=== PATIENT | male | born 1985 | race Caucasian/White ===

== ENCOUNTER 2020-03-07 20:02 | Emergency (ER) | payer BC ==
[2020-03-07] MEDS ORDERED: fentaNYL 100 MCG/2 ML SDV IVPUSH ONE (20:17)
[2020-03-07] MEDS ORDERED: Sodium Chloride 0.9% 10 ML Syringe FLUSH PRN (20:22)
--- NOTE | 2020-03-07 20:25 | EDM.PDOC ---
ED HPI GENERAL MEDICAL PROBLEM - General Chief Complaint: Abdominal Pain Stated Complaint: ADB PAIN Time Seen by Provider: 03/07/20 20:18 Source of Information: Reports: Patient, RN Notes Reviewed History Limitations: Reports: No Limitations - History of Present Illness INITIAL COMMENTS - FREE TEXT/NARRATIVE: 34-year-old gentleman presents emergency department a complaint of right lower quadrant pain he states the pain really is developed over the last 12 hours and got significantly worse over the last hour or so he has felt dizzy and lightheaded but no nausea or vomiting he still passing gas no history of abdominal surgeries right lower abd Pain Score (Numeric/FACES): 9 - Related Data Allergies Allergy/AdvReac Type Severity Reaction Status Date / Time No Known Allergies Allergy Verified 03/07/20 20:16 Home Meds: Home Meds Ketorolac [Toradol] 10 mg PO TID PRN #20 tab 03/07/20 [Rx] Past Medical History - Past Health History Medical/Surgical History: Denies Medical/Surgical History Social & Family History - Tobacco Use Smoking Status *Q: Never Smoker ED ROS GENERAL - Review of Systems Review Of Systems: See Below Constitutional: Denies: Fever, Chills HEENT: Reports: No Symptoms Respiratory: Reports: No Symptoms Cardiovascular: Reports: Lightheadedness GI/Abdominal: Reports: Abdominal Pain. Denies: Nausea, Vomiting Musculoskeletal: Reports: No Symptoms ED EXAM, GI/ABD - Physical Exam Exam: See Below Exam Limited By: No Limitations General Appearance: Alert, Moderate Distress Respiratory/Chest: No Respiratory Distress, Lungs Clear, Normal Breath Sounds, No Accessory Muscle Use, Chest Non-Tender Cardiovascular: Regular Rate, Rhythm, No Murmur GI/Abdominal Exam: Soft, Tender (Tender right lower quadrant), Other (Psoas sign and obturator sign heeltap sign all positive) Course - Vital Signs Last Recorded V/S: Last Vital Signs Temp 96.7 F L 03/07/20 20:14 Pulse 80 03/07/20 23:40 Resp 16 03/07/20 23:40 BP 133/78 03/07/20 23:40 Pulse Ox 98 03/07/20 23:40 - Orders/Labs/Meds Orders: Active Orders 24 hr Category Date Time Status Peripheral IV Care [RC] . DIRECTED Care 03/07/20 20:22 Active UA W/MICROSCOPIC [URIN] Urgent Lab 03/08/20 00:16 Ordered Iopamidol [Isovue-300 (61%)] Med 03/07/20 20:30 Active 78 ml IV . DIRECTED Lactated Ringers [Ringers, Lactated] 1,000 ml Med 03/07/20 20:30 Active IV ASDIRECTED Sodium Chloride 0.9% [Normal Saline] 1,000 ml Med 03/07/20 23:00 Active IV ASDIRECTED Sodium Chloride 0.9% [Normal Saline] 80 ml Med 03/07/20 20:30 Active IV ASDIRECTED Sodium Chloride 0.9% [Saline Flush] Med 03/07/20 20:22 Active 10 ml FLUSH ASDIRECTED PRN Peripheral IV Insertion Adult [OM.PC] Urgent Oth 03/07/20 20:22 Ordered Medication Orders Lactated Ringer's (Ringers, Lactated) 1,000 mls @ 999 mls/hr IV ASDIRECTED [facility] Last Admin: 03/07/20 21:17 Dose: 999 mls/hr Sodium Chloride (Normal Saline) 80 mls @ 3 mls/sec IV ASDIRECTED [facility] Last Admin: 03/07/20 21:01 Dose: 3 mls/sec Sodium Chloride (Normal Saline) 1,000 mls @ 999 mls/hr IV ASDIRECTED [facility] Last Admin: 03/07/20 22:53 Dose: 999 mls/hr Iopamidol (Isovue-300 (61%)) 78 ml IV . DIRECTED [facility] Last Admin: 03/07/20 21:01 Dose: 78 ml Sodium Chloride (Saline Flush) 10 ml FLUSH ASDIRECTED PRN PRN Reason: Keep Vein Open Last Admin: 03/07/20 21:01 Dose: 10 ml Labs: Laboratory Tests 03/07/20 03/07/20 03/07/20 Range/Units 20:20 20:20 20:20 WBC 20.5 H (4.5-11.0) K/uL RBC 5.36 (4.30-5.90) M/uL Hgb 15.7 H (12.0-15.0) g/dL Hct 45.6 (40.0-54.0) % MCV 85 (80-98) fL MCH 29 (27-31) pg MCHC 34 (32-36) % Plt Count 219 (150-400) K/uL Neut % (Auto) 85 H (36-66) % Lymph % (Auto) 7 L (24-44) % [place] % (Auto) 7 H (2-6) % Eos % (Auto) 0 L (2-4) % Baso % (Auto) 0 (0-1) % Sodium 141 (140-148) mmol/L Potassium 3.7 (3.6-5.2) mmol/L Chloride 102 (100-108) mmol/L Carbon Dioxide 23 (21-32) mmol/L Anion Gap 16.1 H (5.0-14.0) mmol/L BUN 22 H (7-18) mg/dL Creatinine 1.4 H (0.8-1.3) mg/dL Est Cr Clr Drug Dosing 54.34 mL/min Estimated GFR (MDRD) 58 L (>60) Glucose 146 H (74-106) mg/dL Lactic Acid 3.8 H (0.4-2.0) mmol/L Calcium 9.4 (8.5-10.1) mg/dL Total Bilirubin 0.8 (0.2-1.0) mg/dL AST 17 (15-37) U/L ALT 31 (12-78) U/L Alkaline Phosphatase 70 (46-116) U/L Total Protein 8.1 (6.4-8.2) g/dL Albumin 4.8 (3.4-5.0) g/dL Globulin 3.3 (2.3-3.5) g/dL Albumin/Globulin Ratio 1.5 (1.2-2.2) Meds: Medications Generic Name Dose Route Start Last Admin Trade Name Freq PRN Reason Stop Dose Admin Lactated Ringer's 1,000 mls @ 999 mls/hr 03/07/20 20:30 03/07/20 21:17 Ringers, Lactated IV 999 mls/hr ASDIRECTED [facility] Administration Sodium Chloride 80 mls @ 3 mls/sec 03/07/20 20:30 03/07/20 21:01 Normal Saline IV 3 mls/sec ASDIRECTED [facility] Administration Sodium Chloride 1,000 mls @ 999 mls/hr 03/07/20 23:00 03/07/20 22:53 Normal Saline IV 999 mls/hr ASDIRECTED [facility] Administration Iopamidol 78 ml 03/07/20 20:30 03/07/20 21:01 Isovue-300 (61%) IV 78 ml . DIRECTED [facility] Administration Sodium Chloride 10 ml 03/07/20 20:22 03/07/20 21:01 Saline Flush FLUSH 10 ml ASDIRECTED PRN Administration Keep Vein Open Discontinued Medications Generic Name Dose Route Start Last Admin Trade Name Freq PRN Reason Stop Dose Admin Fentanyl 50 mcg 03/07/20 20:17 03/07/20 20:25 Sublimaze IVPUSH 03/07/20 20:18 50 mcg ONETIME ONE Administration Hydromorphone HCl 1 mg 03/07/20 20:43 03/07/20 20:47 Dilaudid IVPUSH 03/07/20 20:44 1 mg ONETIME ONE Administration Ketorolac Tromethamine 30 mg 03/07/20 21:41 03/07/20 21:55 Toradol IVPUSH 03/07/20 21:42 30 mg ONETIME ONE Administration Departure - Departure Time of Disposition: 00:19 Disposition: Home, Self-Care 01 Condition: Fair Clinical Impression: Nephrolithiasis - Discharge Information Prescriptions: Ketorolac [Toradol] 10 mg PO TID PRN #20 tab PRN Reason: Pain Instructions: Kidney Stones, [id number] Referrals: PCP,None [Primary Care Provider] - Forms: ED Department Discharge, ED Return to Work/School Form Additional Instructions: Take full course of antibiotics, use Toradol for baseline pain control use the hydrocodone for breakthrough pain, please follow-up with primary care in the next 3 to 5 days for reevaluation call return to the emergency department worsening of symptoms Sepsis Event Note - Evaluation Sepsis Screening Result: Possible Sepsis Risk - Focused Exam Vital Signs: Vital Signs Temp Pulse Resp BP Pulse Ox 03/07/20 23:40 80 16 133/78 98 03/07/20 22:47 80 115/72 96 03/07/20 21:59 82 16 144/83 H 98 03/07/20 21:18 80 18 147/85 H 100 03/07/20 20:47 78 145/85 H 100 03/07/20 20:14 96.7 F L 96 96 H 132/76 91 L 03/07/20 20:11 96.7 F L 96 96 H 132/76 91 L Date Exam was Performed: 03/08/20 Time Exam was Performed: 00:19 - My Orders Last 24 Hours: My Active Orders 03/07/20 20:22 Peripheral IV Care [RC] . DIRECTED Sodium Chloride 0.9% [Saline Flush] 10 ml FLUSH ASDIRECTED PRN Peripheral IV Insertion Adult [OM.PC] Urgent 03/07/20 20:30 Iopamidol [Isovue-300 (61%)] 78 ml IV . DIRECTED Lactated Ringers [Ringers, Lactated] 1,000 ml IV ASDIRECTED Sodium Chloride 0.9% [Normal Saline] 80 ml IV ASDIRECTED 03/07/20 23:00 Sodium Chloride 0.9% [Normal Saline] 1,000 ml IV ASDIRECTED 03/08/20 00:16 UA W/MICROSCOPIC [URIN] Urgent - Assessment/Plan Last 24 Hours: My Active Orders 03/07/20 20:22 Peripheral IV Care [RC] . DIRECTED Sodium Chloride 0.9% [Saline Flush] 10 ml FLUSH ASDIRECTED PRN Peripheral IV Insertion Adult [OM.PC] Urgent 03/07/20 20:30 Iopamidol [Isovue-300 (61%)] 78 ml IV . DIRECTED Lactated Ringers [Ringers, Lactated] 1,000 ml IV ASDIRECTED Sodium Chloride 0.9% [Normal Saline] 80 ml IV ASDIRECTED 03/07/20 23:00 Sodium Chloride 0.9% [Normal Saline] 1,000 ml IV ASDIRECTED 03/08/20 00:16 UA W/MICROSCOPIC [URIN] Urgent Plan: Assessment Acuity = acute Site and laterality = right-sided hydronephrosis Etiology = unknown Manifestations = flank pain Location of injury = Home Lab values = WBC elevated 20.5 consistent leukocytosis, creatinine elevated 1.4 consistent with acute renal failure stage G3 a lactic acid elevated 3.[address] scan describes a 3 to 4 mm stone right ureter with mild hydronephrosis Plan Good relief with Toradol provided in the emergency department prescription written for Toradol 10 mg 1 tab p.o. 3 times daily PRN total #20 sent to [facility], prescription for hydrocodone 5/325 1 tab p.o. 3 times daily PRN total #10 as well as Bactrim DS 1 tab p.o. twice daily x10 days This note was dictated using [email or web address] voice recognition software please call with any questions on syntax or grammar.
[2020-03-07] MEDS ORDERED: Iopamidol 612 MG/ML 100 ML Bottle IV SCH (20:30)
[2020-03-07] MEDS ORDERED: Lactated Ringers 1,000 ML IV SCH (20:30)
[2020-03-07] MEDS ORDERED: Sodium Chloride 0.9% 80 ML IV SCH (20:30)
[2020-03-07] MEDS ORDERED: HYDROmorphone 1 MG/ML Syringe IVPUSH ONE (20:43)
--- NOTE | 2020-03-07 21:35 | CRLCT ---
INDICATION: RLQ abdominal pain. CT ABDOMEN AND PELVIS WITH CONTRAST TECHNIQUE: Multidetector CT imaging was performed through the abdomen and pelvis following intravenous contrast administration using 78 mL Isovue-300. Coronal and sagittal reconstructions were generated. COMPARISON: None. FINDINGS: Lower chest: Lung bases are clear. Liver: Unremarkable aside from a 1.5 centimeter probable hemangioma in the posterior right hepatic lobe. Gallbladder and bile ducts: No gallbladder wall thickening or calcified gallstones. No biliary dilation identified. Pancreas: Unremarkable. Spleen: Normal. Adrenals: No nodules or masses. Kidneys, ureters, and urinary bladder: 3-4 millimeter obstructing stone in the proximal right ureter just below the ureteropelvic junction, producing mild right hydronephrosis. Unremarkable left kidney. No bladder mass or definite wall thickening. Gastrointestinal tract: Normal caliber bowel without wall thickening. The appendix is normal. Vascular structures: Normal for age. Peritoneum: No free air, abscess, or significant free fluid. Lymph nodes: No pathologically enlarged nodes identified. Reproductive organs: No pelvic masses. Bones: Normal for age. IMPRESSION: Obstructing 3-4 millimeter stone in the proximal right ureter producing mild right hydronephrosis. ROSE MARY MILTON MD [facility] Dictated by Shemar Milton MD @ 03/07/2020 9:33:00 PM Dictated by: Shemar Milton MD @ 03/07/2020 21:35:18 (Electronically Signed)
[2020-03-07] MEDS ORDERED: Ketorolac 30 MG/ML SDV IVPUSH ONE (21:41)
[2020-03-07] MEDS ORDERED: Sodium Chloride 0.9% 1,000 ML IV SCH (23:00)
== END 2020-03-08 00:33 | disposition home or self-care (01) ==
LOC: JP.ED 20:02
DX: N13.2 Hydronephrosis with renal and ureteral calculous obstruction (principal)
CPT/HCPCS: 36415; 74177; 80053; 81001; 83605; 85025; 96361; 96374; 96375; 99284; J1170; J1885; J3010; J7030; J7050; J7120; Q9967